=== PATIENT | female | born 1990 | race Caucasian/White ===

== ENCOUNTER 2017-03-18 16:28 | Emergency (ER) | payer OTHER ==
[~2017-03-18] VITALS: Ht 172.7 cm; Wt 65.8 kg
[2017-03-18] MEDS ORDERED: NORCO 5-325 TA1 EACH PO (17:36)
[2017-03-18 17:57] VITALS: BP 99/65
== END 2017-03-18 17:58 | disposition home or self-care (01) ==
LOC: ER 16:28
DX: S60.041A Contusion of right ring finger without damage to nail, initial encounter (principal); W21.02XA Struck by soccer ball, initial encounter; Y93.66 Activity, soccer; Y92.89 Other specified places as the place of occurrence of the external cause; Y99.8 Other external cause status